=== PATIENT | female | born 1990 | race Caucasian/White ===

== ENCOUNTER → 2021-03-24 14:33 | Outpatient (CLI) | payer SELFPAY ==
[2021-03-24 16:30] LABS: Urine N gonorrhoeae NOT DETECTED
[2021-03-24 17:57] LABS: Urine Chlamydia NOT DETECTED
== END ==
PROVIDERS: Referring Provider Nurse Practitioner Family; Visit Provider Nurse Practitioner Family
DX: N89.8 Other specified noninflammatory disorders of vagina (principal); Z13.9 Encounter for screening, unspecified
CPT/HCPCS: 87210; 87491; 87591

== ENCOUNTER → 2022-04-12 09:45 | Outpatient (CLI) | payer OTHER, SELFPAY ==
[2022-04-12 10:51] LABS: Influenza A - CEPHEID Flu A NEGATIVE (NEGATIVE); Influenza B - CEPHEID Flu B NEGATIVE (NEGATIVE); Respiratory Syncytial Virus Negative (Negative)
[2022-04-12 10:59] LABS: COVID-19 CEPHEID 4-PLEX PCR Negative (Negative)
== END ==
PROVIDERS: Visit Provider Student in an Organized Health Care Education/Training Program
DX: R05.9 Cough, unspecified (principal); J02.9 Acute pharyngitis, unspecified
CPT/HCPCS: 0241U; 87070

== ENCOUNTER → 2025-01-14 16:50 | Outpatient (CLI) | payer OTHER, SELFPAY | PROVIDERS: Visit Provider Nurse Practitioner Family | DX: L02.415 Cutaneous abscess of right lower limb (principal) | CPT/HCPCS: 87070; 87075; 87077; 87147; 87186; 87205 ==